=== PATIENT | female | born 2005 | race African-American/Black ===

== ENCOUNTER 2024-05-16 20:13 | Emergency (ER) | payer SELFPAY ==
[~2024-05-16] VITALS: Ht 160 cm; Wt 50.0 kg
[2024-05-16 20:18] VITALS: O2SAT 99
[2024-05-17] MEDS ORDERED: AM250 MT
[2024-05-17] MEDS ORDERED: HYDR-3992 MT (00:03)
[2024-05-17 00:16] VITALS: BP 95/60; PULSE 65; RESP 14; TEMP 98.7
== END 2024-05-17 00:19 | disposition home or self-care (01) ==
LOC: ER 20:13
DX: K08.89 Other specified disorders of teeth and supporting structures (principal); F41.9 Anxiety disorder, unspecified
CPT/HCPCS: 99283